=== PATIENT | female | born 1980 | race Caucasian/White ===

== ENCOUNTER 2020-07-08 09:21 | Outpatient (CLI) | payer OTHER, SELFPAY ==
--- NOTE | 2020-07-08 09:29 | MM_ITS ---
WS: [id number] DIAGNOSTIC BILATERAL DIGITAL MAMMOGRAM WITH CAD Bilateral breast ultrasound, limited HISTORY: LT BREAST MASS 7 O'CLOCK COMPARISON: 12/22/2014 TECHNIQUE: Bilateral craniocaudad, mediolateral oblique, and mediolateral views are submitted. Spot c ompression LEFT CC and MLO. Computer aided detection utilized. Breast composition: The breasts are extremely dense, which lowers the sensitivity of mammography. Pal pable markers are placed at 4 and 7:00 LEFT breast. There is very dense fibroglandular tissue. Suspec t there are underlying nearly obscured masses. These may have been present on the prior examination b ut due to the very dense breast difficult to visualize. Increased density posterior to the RIGHT nipp le. Bilateral breast ultrasound, limited. RIGHT breast: Ultrasound directed posterior to the nipple demonstrates several benign cysts. The larg est measures 2.0 x 1.0 x 2.0 cm. LEFT breast: At 3:00, 2 cm from the nipple is a large cyst measuring 2.1. 1.3 x 2.2 cm. This correspo nds to the palpable abnormality. At 7:00, 3 cm from the nipple is an additional cyst measuring 4 x 3 x 4 mm. This also corresponds to the palpable abnormality. MM/[place] [id number] IMPRESSION: BI-RADS: 2-Benign FOLLOW UP: 1 Year Follow-up Palpable areas in the LEFT breast and the mammographic abnormality in the RIGHT breast are benign simple cysts.
== END 2020-07-08 09:22 | disposition home or self-care (01) ==
LOC: RADSHAW 09:25
PROVIDERS: Visit Provider Nurse Practitioner Family
DX: N63.24 Unspecified lump in the left breast, lower inner quadrant (principal); N60.02 Solitary cyst of left breast
CPT/HCPCS: 76642; 77066

== ENCOUNTER 2022-08-06 15:08 | Outpatient (CLI) | payer OTHER, SELFPAY ==
--- NOTE | 2022-08-06 15:14 | MM_ITS ---
WS: [id number] BILATERAL 3D TOMOSYNTHESIS DIGITAL SCREENING MAMMOGRAM WITH CAD CLINICAL INFORMATION: SCREENING HISTORY: Screening mammogram. No current complaints. COMPARISON: 2020 TECHNIQUE: Bilateral CC and MLO. FINDINGS: The breast are composed of extremely dense tissue, which can limit the detection of small underlying mass lesions. No suspicious focal mass, asymmetry, calcifications, or architectural distortion. No ev idence of malignancy. A few tiny punctate calcifications. MM/[id number] IMPRESSION: BI-RADS: 2-Benign FOLLOW UP: 1 Year Follow-up Recommend return to annual screening mammography.
== END 2022-08-06 15:09 | disposition home or self-care (01) ==
PROVIDERS: Visit Provider Advanced Practice Midwife
DX: Z12.31 Encounter for screening mammogram for malignant neoplasm of breast (principal)
CPT/HCPCS: 77063; 77067

== ENCOUNTER 2023-12-21 07:49 | Outpatient (CLI) | payer OTHER, SELFPAY ==
--- NOTE | 2023-12-21 07:57 | MM_ITS ---
WS: [id number] BILATERAL SCREENING DIGITAL TOMOSYNTHESIS MAMMOGRAM WITH CAD HISTORY: SCREENING COMPARISON: 08/06/2022, 07/08/2021 Bilateral CC and MLO views with tomosynthesis and synthetic mammography submitted. Computer aided det ection analyzed. Breast composition: The breasts are extremely dense, which lowers the sensitivity of mammography. No suspicious masses, microcalcifications or architectural distortion. Asymmetries and areas of increase d density are similar to prior studies. No distortion. MM/MM scr tomosynthesis [id number] IMPRESSION: BI-RADS: 2 - Benign FOLLOW UP: 1 Year Follow-up
== END 2023-12-21 07:50 | disposition home or self-care (01) ==
LOC: RAD 07:50
PROVIDERS: Visit Provider Advanced Practice Midwife
DX: Z12.31 Encounter for screening mammogram for malignant neoplasm of breast (principal); R92.333 Mammographic heterogeneous density, bilateral breasts; N64.89 Other specified disorders of breast
CPT/HCPCS: 77063; 77067